=== PATIENT | female | born 1970 | race Caucasian/White ===

== ENCOUNTER → 2018-12-31 18:46 | Outpatient (REF) | payer OTHER, SELFPAY | LOC: LAB 18:46 | PROVIDERS: Family Provider Family Medicine; Visit Provider Otolaryngology | DX: H60.311 Diffuse otitis externa, right ear (principal) | CPT/HCPCS: 87070; 87077; 87147; 87205 ==

== ENCOUNTER → 2021-07-22 12:37 | Outpatient (CLI) | payer OTHER, SELFPAY ==
--- NOTE | 2021-07-22 | DI.MRI.S_ITS ---
PROCEDURE: MR ANKLE RT WO CON INDICATIONS: RIGHT ANKLE PAIN TECHNIQUE: Noncontrast sagittal T1 spin echo and T2 fast spin echo with fat saturation, axial proton density fast spin echo and T2 fast spin echo with fat saturation, coronal T1 spin echo and T2 fast spin echo with fat saturation through the ankle/hindfoot. COMPARISON: None. FINDINGS: Image quality: There is mild inhomogeneous fat saturation a. Bones and joints: No bone marrow contusions or fractures. No hindfoot coalitions. No osteochondral injuries of the talar dome. There are mild cystic changes within the talus and calcaneus along the sinus tarsi compatible with small ganglion cysts. No pathologic joint effusions. Medial structures: The posterior tibialis, flexor digitorum longus, and flexor hallucis longus tendons are intact. The posterior tibial neurovascular bundle appears normal within the tarsal tunnel, without extrinsic mass effect. There is mild periligamentous edema along the superficial layer of the deltoid ligament consistent with sequelae of a mild sprain. The spring ligament components appear intact Lateral structures: The anterior talofibular and posterior talofibular ligaments appear intact. The calcaneofibular ligament is mildly attenuated in signal with mild periligamentous edema consistent with a mild sprain. More superiorly, the anterior and posterior tibiofibular ligaments appear intact, as is the intermalleolar ligament. The tibiofibular syndesmosis is normal in width at 2 mm or less. The peroneus longus and brevis tendons demonstrate normal location and morphology. Adjacent bony peroneal tubercle and retrotrochlear prominence are normal in size. The sinus tarsi demonstrates normal fatty signal, without edema, fibrosis, or cyst formation. The calcaneonavicular and calcaneocuboid components of the bifurcate ligament appear intact. The dorsal calcaneocuboid ligament appears intact. Anterior structures: The tibialis anterior, extensor hallucis longus, and extensor digitorum longus tendons appear intact. The dorsal talonavicular ligament appears intact. Posterior and plantar structures: Achilles tendon is intact. Medial and lateral bands of the plantar fascia are of normal thickness. No abductor digiti quinti muscle atrophy to suggest Gunter neuropathy. IMPRESSION: 1. Mild sprain of the deltoid ligament involving the superficial layer. 2. Mild sprain of the calcaneofibular ligament laterally. Dictated by: Rob Bowen M.D. on 07/22/2021 at 16:30 Approved by: Rob Bowen M.D. on 07/22/2021 at 16:40
== END ==
PROVIDERS: Family Provider Family Medicine; Referring Provider Podiatrist; Visit Provider Podiatrist
DX: S93.401A Sprain of unspecified ligament of right ankle, initial encounter (principal); M79.671 Pain in right foot; R26.2 Difficulty in walking, not elsewhere classified; S99.921A Unspecified injury of right foot, initial encounter
CPT/HCPCS: 73721

== ENCOUNTER → 2024-10-10 13:36 | Outpatient (CLI) | payer OTHER, SELFPAY ==
--- NOTE | 2024-10-10 13:38 | DI.MRI.S_ITS ---
PROCEDURE: MR ANKLE LT WO CON INDICATIONS: persistent pain after ankle sprain TECHNIQUE: Noncontrast sagittal T1 spin echo and T2 fast spin echo with fat saturation, axial proton density fast spin echo and T2 fast spin echo with fat saturation, coronal T1 spin echo and T2 fast spin echo with fat saturation through the ankle/hindfoot. COMPARISON: [facility], MR, MR ANKLE LEFT WITHOUT CONTRAST, 05/12/2023, 14:06. [facility], MR, MR ANKLE RT WO CON, 07/22/2021, 12:55. FINDINGS: Image quality: Excellent Tendons: Mild tenosynovitis of the posterior tibialis. The flexor digitorum longus and the flexor hallucis longus are unremarkable. The extensor tendons, and the peroneal tendons are unremarkable. Mild tendinosis of the distal Achilles tendon, without tear. Ligaments: The anterior and the posterior tibiofibular ligament are intact. The anterior and the posterior talofibular ligament are intact. The calcaneofibular ligament is intact. The deep portion deltoid ligament is unremarkable. Sinus tarsi: No fibrosis Plantar fascia: Mild thickening of the central cord, likely representing plantar fasciitis. Muscles: Normal in signal Bones: Mild subchondral cystic changes at the posterior talus dome, favoring reactive. No acute fracture. Previously seen marked marrow edema of the calcaneus has resolved. Small tibiotalar effusion. Small amount of fluid in the posterior subtalar recess. 8 millimeter ganglion cyst dorsal to the medial cuneiform and the navicular articulation. IMPRESSION: 1. Mild tendinosis of the distal Achilles tendon, without tear. 2. Plantar fasciitis. 3. Mild subchondral cystic changes at the posterior talus dome, reactive. 4. Previously seen marked marrow edema of the calcaneus has resolved. 5. 8 millimeter ganglion cyst dorsal to the medial cuneiform and the navicular articulation. Dictated by: Claudia Lucas M.D. on 10/10/2024 at 16:03 Approved by: Claudia Lucas M.D. on 10/10/2024 at 16:14
== END ==
PROVIDERS: Family Provider Family Medicine; PCP Physician Assistant Medical; Referring Provider Orthopaedic Surgery Foot and Ankle Surgery; Visit Provider Orthopaedic Surgery Foot and Ankle Surgery
DX: S92.025D Nondisplaced fracture of anterior process of left calcaneus, subsequent encounter for fracture with routine healing (principal); M72.2 Plantar fascial fibromatosis; M67.472 Ganglion, left ankle and foot; X58.XXXD Exposure to other specified factors, subsequent encounter
CPT/HCPCS: 73721

== ENCOUNTER → 2025-07-10 12:45 | Outpatient (CLI) | payer OTHER, SELFPAY ==
--- NOTE | 2025-07-17 17:38 | DI.NM.S_ITS ---
DATE OF SERVICE: 07/17/2025 PROCEDURE: Initially exercise followed by pharmacological perfusion study. INDICATIONS: Known history of LAD and RCA stent in remote past with symptomatic PVCs. RADIOPHARMACEUTICAL: 26 millicurie technetium-99m Myoview IV was injected at stress and 27.5 millicurie technetium-99m Myoview IV was injected at rest. CARDIAC STRESS: The patient initially attempted walking on a treadmill on Panfilo protocol. She walked on Panfilo protocol for 5 minutes and 5 seconds, achieved maximum heart rate of 135, which was 81% of target heart rate. JOSEPH positive 29%. 7 METS of workload. Exercise test was stopped due to fatigue and dyspnea. Baseline rhythm was sinus. During stress, nonspecific ST-T changes. One ventricular couplet. The patient got converted to pharmacological perfusion study. The patient received IV Lexiscan as per protocol. During Lexiscan stress, there were no convincing ischemic changes. No significant arrhythmias. No chest pain. The patient remained hemodynamically stable. Prior to exercise, blood pressure 122/80 and during peak exercise, 152/100. RAW DATA: Significant breast shadow seen. GATED STUDY: Resting LV ejection fraction 67% and stress LV ejection fraction 90% without any obvious wall motion abnormalities. Resting end- diastolic volume 85 mL. TID ratio 0.80, which is within normal limits. Lung/heart ratio 0.59, which is abnormal. MYOCARDIAL PERFUSION SCAN: Stress supine and resting supine and stress prone images were compared to each other. There is a normal myocardial perfusion. Summed stress score and sum difference score and sum rest score is zero. CONCLUSION: This is a normal myocardial perfusion study with stress LV ejection fraction 90% and resting LV ejection fraction 67% without any wall motion abnormalities. However, diminished exercise tolerance. JOSEPH positive 29%. Rare ventricular couplets. No significant ventricular arrhythmias. No obvious ischemic EKG changes. The patient could not walk much on treadmill because of fatigue and shortness of breath. Her lung heart ratio 0.59, which is abnormal. Consider 2D echo to rule out any valvular pathology or diastolic dysfunction. As far as perfusion scan is concerned, this is a low-risk myocardial perfusion scan. GreyKathryn kemp - HEAVENLY/yoko/LUIS doc#: [id number]/job#: [id number] dd: 07/17/2025 17:17:00 dt: 07/17/2025 17:26:00 DICTATING MD/COPIES TO: Jc Gomez MD COPIES MNE: [id number];
== END ==
LOC: NUCM 12:46
PROVIDERS: Family Provider Family Medicine; PCP Physician Assistant Medical; Referring Provider Internal Medicine Cardiovascular Disease; Visit Provider Internal Medicine Cardiovascular Disease
DX: R00.2 Palpitations (principal); I49.3 Ventricular premature depolarization; I25.10 Atherosclerotic heart disease of native coronary artery without angina pectoris; Z95.5 Presence of coronary angioplasty implant and graft
CPT/HCPCS: 78452; 93017; A9502; J2785